=== PATIENT | male | born 2000 | race Caucasian/White ===

== ENCOUNTER 2020-10-18 08:16 | Emergency (ER) | payer BC, OTHER, SELFPAY ==
[2020-10-18 08:18] VITALS: BP 144/77; PULSE 89; RESP 18; TEMP 36.9; O2SAT 99; BMI 23.5
[2020-10-18 08:25] VITALS: BP 144/77; PULSE 94; RESP 18; O2SAT 98
--- NOTE | 2020-10-18 08:36 | XRR_ITS ---
PROCEDURE INFORMATION: Exam: XR Chest Exam date and time: 10/18/2020 8:56 AM Age: 19 years old Clinical indication: Cough and dyspnea; Additional info: Dyspnea/cough TECHNIQUE: Imaging protocol: XR of the chest. Views: 1 view. COMPARISON: CR Chest 1 [place] [id number] 05/16/2019 6:47 AM FINDINGS: Lungs: Mildly hyperaerated lungs consistent with deep inspiratory effort vs mild reactive airway disease. Pleural spaces: Unremarkable. No pleural effusion. No pneumothorax. Heart/Mediastinum: Unremarkable. No cardiomegaly. Bones/joints: Unremarkable. XR/XR chest 1V portable [id number] IMPRESSION: Mildly hyperaerated lungs consistent with deep inspiratory effort vs mild reactive airway disease.
--- NOTE | 2020-10-18 08:37 | W.ED.ASTHMA ---
HPI - Asthma General: Chief Complaint: Upper Respiratory Infection Stated Complaint: DIFF BREATHING Time Seen by Provider: 10/18/20 08:20 History of Present Illness: HPI Narrative: 19-year-old male presents to the emergency room with his complaints of shortness of breath and wheezing. He said increasing cough worse at night cough is productive of clear mucousy sputum but nothing purulent. He has a known history of asthma he has been out of his Advair inhaler for the last 2 to 3 weeks he used albuterol this morning couple of hours before coming in with some improvement. MD complaint: asthma attack , shortness of breath and wheezing Onset (ago): hour(s) Severity: moderate Context: ran out of meds Associated symptoms: Deny chest pain, fever(s), hemoptysis, leg edema, non-productive cough, productive cough or syncope Asthma History: childhood onset Treatments Prior to Arrival: inhaled bronchodilator Review of Systems Const: Denies: fever(s) ENMT: Denies: throat pain, ear or mastoid pain, nasal discharge or nasal congestion Card: Denies: chest pain or syncope Resp: Denies: productive cough, non-productive cough or hemoptysis GI: Denies: abdominal pain, nausea, vomiting, hematemesis, coffee ground emesis, diarrhea, constipation, bloating, hematochezia or melena : Denies: flank pain, dysuria, urinary frequency or urinary urgency Skin/Breast: Denies: rash or pruritus [facility] ED PFSH: Medical History (Updated 10/18/20 @ 09:15 by Marcos Chambers DO) Asthma Physical Exam Const: COMMON NORMALS: no acute distress GENERAL APPEARANCE: cooperative and comfortable ORIENTATION/CONSCIOUSNESS: Yes awake, Yes oriented to person, Yes oriented to place and Yes oriented to time HENMT: COMMON NORMALS: normocephalic, atraumatic and hearing grossly normal bilaterally HEAD & SCALP: normocephalic and atraumatic Neck/C-Spine: COMMON NORMALS: no JVD Resp: EFFORT & INSPECTION: No respiratory distress AUSCULTATION: wheezes Cardio: COMMON NORMALS: no JVD, regular rate, regular rhythm and No murmurs present (Cardio) RATE: regular rate RHYTHM: regular rhythm GI: COMMON NORMALS: Soft to palpation and No hepatosplenomegaly present AUSCULTATION: Yes normoactive bowel sounds PALPATION: Yes Soft to palpation, No Tenderness to palpation present (GI), No Guarding due to palpation present (GI) and Yes No hepatosplenomegaly present Extremity: COMMON NORMALS: normal to inspection, capillary refill normal, no clubbing, cyanosis or edema, no calf tenderness and no pedal edema Neuro: SENSORIUM/ORIENTATION: Yes oriented to person, Yes oriented to place and Yes oriented to time Skin: COMMON NORMALS: no rashes or lesions noted GENERAL SKIN EXAM: no rashes or lesions noted Course Vital Signs: Vital signs: Vital Signs Temperature 98.9 F 10/18/20 09:25 Pulse Rate 99 10/18/20 09:25 Respiratory Rate 18 10/18/20 09:25 Blood Pressure 135/83 10/18/20 09:25 Pulse Oximetry 99 10/18/20 09:25 MDM - Asthma MDM Narrative: Medical decision making narrative: Patient responded well to treatment here. He has albuterol at home we will add Advair discus inhaler as well as a Medrol Dosepak. Needs to follow-up with her primary care provider within the week if he has worsening problems return Discharge Plan Discharge Patient Disposition: Home Clinical Impression: Asthma Condition: Stable Prescriptions: New Advair Diskus 250-50 mcg/dose blister with device 1 inh inhalation BID Qty: 60 RF: 0 Medrol (Servando) 4 mg tablets,dose pack See Rx Instructions .ROUTE .COMPLEX Qty: 21 RF: 0 Discharge Orders: Discharge ED (Routine); Ordered 10/18/20 Ordered By: Marcos Chambers Referrals: Tylor Crawley [Primary Care Provider] - Discharge Diet: Usual diet Discharge Activity: Resume usual activity Patient Instructions: Opioid Safety Activity Restrictions/Additional Instructions: Follow-up with your primary care doctor within the next 1 to 2 weeks. Coding Level of Care Code ED Rating Officer for [facility] Fwd Exam Comprehensive
[2020-10-18 09:00] VITALS: PULSE 88; RESP 17; O2SAT 98
[2020-10-18] MEDS: ipratropium-albuterol 3 mL Neb INHALATION (09:04)
[2020-10-18 09:07] VITALS: PULSE 88
[2020-10-18 09:25] VITALS: BP 135/83; PULSE 99; RESP 18; TEMP 37.2; O2SAT 99
== END 2020-10-18 09:30 | disposition home or self-care (01) ==
PROVIDERS: Emergency Provider Family Medicine; PCP Family Medicine
DX: J45.909 Unspecified asthma, uncomplicated (principal)
CPT/HCPCS: 71045; 94640; 96374; 99283; J2930

== ENCOUNTER → 2021-05-16 17:07 | Outpatient (BNVA) | payer BC, OTHER, SELFPAY | PROVIDERS: PCP Family Medicine; Visit Provider Family Medicine | DX: Z20.822 Contact with and (suspected) exposure to COVID-19 (principal); Z11.52 Encounter for screening for COVID-19; J45.909 Unspecified asthma, uncomplicated; Z71.89 Other specified counseling | CPT/HCPCS: 87400; 87635 ==

== ENCOUNTER 2022-03-04 00:51 | Emergency (ER) | payer BC, SELFPAY ==
--- NOTE | 2022-03-04 00:57 | ECG_ITS ---
[facility] Test Date: 2022-03-04 Pat Name: Jerardo Galindo Department: Room: Gender: Male Behavioral Therapist: : 2000 Requested By: Maximo Donaldson Order Number: [id number] Jewel MD: Kendrick August M.D. Measurements Intervals [place] Rate: 72 P: 5 MI: 142 QRS: 7 QRSD: 93 T: 9 QT: 348 QTc: 383 Interpretive Statements SINUS RHYTHM MODERATE VOLTAGE CRITERIA FOR LVH, CONSIDER NORMAL VARIANT [MEETS CRITERIA IN ONE OF: R(aVL), S(V1), R(V5), R(V5/V6)+S(V1)] No previous ECG available for comparison Electronically Signed On 03-04-2022 10:41:25 CDT by Kendrick August M.D. [id number]
[2022-03-04 00:59] VITALS: BP 131/89; PULSE 80; RESP 16; TEMP 36.8; O2SAT 98; BMI 24.7
[2022-03-04 02:36] LABS: SARS Covid-2 Antigen Negative (Negative)
== END 2022-03-04 04:28 | disposition left against medical advice (07) ==
PROVIDERS: Emergency Medicine; Emergency Provider Family Medicine; PCP Family Medicine
DX: Z53.21 Procedure and treatment not carried out due to patient leaving prior to being seen by health care provider (principal); R07.9 Chest pain, unspecified
CPT/HCPCS: 87426; 93005